=== PATIENT | male | born 1935 | race Caucasian/White ===

== ENCOUNTER 2017-09-24 16:10 | Inpatient (IN) | payer OTHER, MEDICAID, MEDICARE ==
[2017-09-24 20:00] LABS: ADD MAN DIFF? NO
[2017-09-24 20:02] LABS: WHITE BLOOD COUNT 10.3 10^3/ul (4.8-10.8)
[2017-09-24 20:02] LABS: BASOPHILS % 0.3 % (0.0-2.0); EOSINOPHILS # 0.1 10^3/ul (0.0-0.5); EOSINOPHILS % 1.1 % (0.0-7.0); HEMATOCRIT 27.8 % (42.0-52.0); HEMOGLOBIN 9.1 g/dl (14.0-18.0); LYMPHOCYTES # 1.1 10^3/ul (0.8-2.9); LYMPHOCYTES % 10.9 % (15.0-51.0); MEAN CORPUSCULAR HEMOGLOBIN 27.7 pg (29.0-33.0); MEAN CORPUSCULAR HGB CONC 32.7 g/dl (32.0-37.0); MEAN CORPUSCULAR VOLUME 84.8 fl (82.0-101.0); MEAN PLATELET VOLUME 9.8 fl (7.4-10.4); MONOCYTE # 0.7 10^3/ul (0.3-0.9); MONOCYTES % 6.3 % (0.0-11.0); NEUTROPHIL # 8.3 10^3/ul (1.6-7.5); PLATELET COUNT 374 10^3/UL (140-415); RED BLOOD COUNT 3.28 10^6/ul (4.70-6.10); RED CELL DISTRIBUTION WIDTH 12.9 % (11.5-14.5)
[2017-09-24 20:14] LABS: ALANINE AMINOTRANSFERASE 24 IU/L (13-69); ALBUMIN 3.6 g/dl (3.3-4.9); ALBUMIN/GLOBULIN RATIO 0.94; ALKALINE PHOSPHATASE 95 IU/L (42-121); ANION GAP 17 (8-16); ASPARTATE AMINO TRANSFERASE 22 IU/L (15-46); BILIRUBIN,INDIRECT 0.2 mg/dl (0-1.1); BILIRUBIN,TOTAL 0.2 mg/dl (0.2-1.3); BLOOD UREA NITROGEN 38 mg/dl (7-20); CALCIUM 10.6 mg/dl (8.4-10.2); CARBON DIOXIDE 27 mmol/L (21-31); CHLORIDE 97 mmol/L (97-110); CREATININE 1.65 mg/dl (0.61-1.24); GLUCOSE 167 mg/dl (70-220); POTASSIUM 4.8 mmol/L (3.5-5.1); SODIUM 136 mmol/L (135-144); TOTAL PROTEIN 7.4 g/dl (6.1-8.1)
[2017-09-24] MEDS: ASPIRIN 325 MG TAB PO (20:14)
[2017-09-24 20:15] LABS: INR 1.25; PROTIME 15.9 Sec (11.9-14.9); PT RATIO 1.2
[2017-09-24] MEDS: SOD CHLORIDE 0.9% 1,000 ML IV (20:15)
[2017-09-24 20:16] LABS: PARTIAL THROMBOPLASTIN TIME 31.8 Sec (25.0-35.0)
[2017-09-24 20:25] LABS: TROPONIN-I 0.014 ng/ml (0.00-0.12)
[2017-09-24] MEDS ORDERED: ONDANSETRON 4 MG INJ IV (23:30)
[2017-09-24] MEDS ORDERED: ACETAMINOPHEN 325 MG TAB PO (23:30)
[2017-09-25] MEDS: SOD CHLORIDE 0.9% 1,000 ML IV (00:41)
[2017-09-25] MEDS: PHYTONADIONE 10 MG/ML INJ SC (00:41)
[2017-09-25 01:21] LABS: COLLAGEN/EPI 113 Secs. (51-198)
[2017-09-25] MEDS ORDERED: ONDANSETRON 4 MG INJ IV (02:00)
[2017-09-25] MEDS ORDERED: NACL 0.9% 3 ML SYG IV (02:00)
[2017-09-25] MEDS ORDERED: LORAZEPAM 0.5 MG TAB PO (02:00)
[2017-09-25] MEDS ORDERED: ALBUTEROL/IPRATROPIUM (NEB) 3 ML AMP HHN (02:00)
[2017-09-25] MEDS ORDERED: morphine 2 MG INJ IV (02:00)
[2017-09-25] MEDS ORDERED: ACETAMINOPHEN 325 MG TAB PO (02:00)
[2017-09-25] MEDS ORDERED: hydrALAzine 20 MG INJ IV (02:00)
[2017-09-25] MEDS ORDERED: GLUCOSE GEL 15 GRAM TUBE PO ×2 (02:30)
[2017-09-25] MEDS ORDERED: GLUCAGON 1 MG INJ IM (02:30)
[2017-09-25] MEDS ORDERED: DEXTROSE 50% 50 ML SYRINGE IV ×2 (02:30)
[2017-09-25] MEDS ORDERED: GLUCOSE GEL 15 GRAM TUBE BUCCAL (02:30)
[2017-09-25 05:43] LABS: ADD MAN DIFF? NO
[2017-09-25 05:51] LABS: BASOPHILS % 0.3 % (0.0-2.0); EOSINOPHILS # 0.1 10^3/ul (0.0-0.5); EOSINOPHILS % 1.2 % (0.0-7.0); HEMATOCRIT 25.6 % (42.0-52.0); HEMOGLOBIN 8.5 g/dl (14.0-18.0); LYMPHOCYTES # 0.9 10^3/ul (0.8-2.9); LYMPHOCYTES % 7.8 % (15.0-51.0); MEAN CORPUSCULAR HEMOGLOBIN 27.6 pg (29.0-33.0); MEAN CORPUSCULAR HGB CONC 33.2 g/dl (32.0-37.0); MEAN CORPUSCULAR VOLUME 83.1 fl (82.0-101.0); MONOCYTE # 0.7 10^3/ul (0.3-0.9); MONOCYTES % 6.2 % (0.0-11.0); NEUTROPHIL # 9.9 10^3/ul (1.6-7.5); NEUTROPHILS % 84.2 % (39.0-77.0); PLATELET COUNT 340 10^3/UL (140-415); RED BLOOD COUNT 3.08 10^6/ul (4.70-6.10)
[2017-09-25 05:51] LABS: WHITE BLOOD COUNT 11.7 10^3/ul (4.8-10.8)
[2017-09-25 06:05] LABS: HEMOGLOBIN A1C 7.1 % (0-5.9)
[2017-09-25 06:18] LABS: ALANINE AMINOTRANSFERASE 29 IU/L (13-69); ALBUMIN 3.3 g/dl (3.3-4.9); ALBUMIN/GLOBULIN RATIO 1.03; ALKALINE PHOSPHATASE 83 IU/L (42-121); ANION GAP 13 (8-16); ASPARTATE AMINO TRANSFERASE 22 IU/L (15-46); BILIRUBIN,INDIRECT 0.1 mg/dl (0-1.1); BILIRUBIN,TOTAL 0.1 mg/dl (0.2-1.3); BLOOD UREA NITROGEN 32 mg/dl (7-20); CALCIUM 10.3 mg/dl (8.4-10.2); CARBON DIOXIDE 26 mmol/L (21-31); CHLORIDE 102 mmol/L (97-110); CHOL/HDL RATIO 4.3 RATIO; CHOLESTEROL 92 mg/dl (100-200); CREATININE 1.41 mg/dl (0.61-1.24); GLUCOSE 78 mg/dl (70-220); HDL CHOLESTEROL 21 mg/dl (31-75); LDL CHOLESTEROL,CALCULATED 55 mg/dl; MAGNESIUM 1.6 mg/dl (1.7-2.5); POTASSIUM 4.2 mmol/L (3.5-5.1); SODIUM 137 mmol/L (135-144); TOTAL PROTEIN 6.5 g/dl (6.1-8.1); TRIGLYCERIDES 78 mg/dl (0-149)
[2017-09-25 06:44] LABS: THYROID STIMULATING HORMONE 0.955 MIU/L (0.465-4.680)
[2017-09-25 06:56] LABS: IRON 19 ug/dl (35-150)
[2017-09-25 07:05] LABS: % IRON SATURATION 9 % SAT (22-52); TOTAL IRON BINDING CAPACITY 221 ug/dl (241-421)
[2017-09-25] MEDS: metFORMIN 500 MG TAB PO (08:54)
[2017-09-25] MEDS: ASPIRIN 81 MG TAB PO (08:54)
[2017-09-25] MEDS: AMLODIPINE 5 MG TAB PO (08:56)
[2017-09-25] MEDS: HEPARIN 5,000 UNIT/0.5 ML VIAL SC ×2 (09:00→20:28)
[2017-09-25 13:43] LABS: OCCULT BLOOD STOOL NEGATIVE (NEGATIVE)
[2017-09-25] MEDS: ATORVASTATIN 20 MG TAB PO (20:23)
[2017-09-26 07:24] LABS: ADD MAN DIFF? NO
[2017-09-26 07:38] LABS: BASOPHILS % 0.4 % (0.0-2.0); EOSINOPHILS # 0.2 10^3/ul (0.0-0.5); EOSINOPHILS % 2.2 % (0.0-7.0); HEMATOCRIT 23.6 % (42.0-52.0); HEMOGLOBIN 7.8 g/dl (14.0-18.0); LYMPHOCYTES % 12.6 % (15.0-51.0); MEAN CORPUSCULAR HEMOGLOBIN 27.8 pg (29.0-33.0); MEAN CORPUSCULAR HGB CONC 33.1 g/dl (32.0-37.0); MEAN PLATELET VOLUME 10.5 fl (7.4-10.4); MONOCYTE # 0.6 10^3/ul (0.3-0.9); MONOCYTES % 7.2 % (0.0-11.0); NEUTROPHIL # 6.2 10^3/ul (1.6-7.5); NEUTROPHILS % 77.2 % (39.0-77.0); PLATELET COUNT 339 10^3/UL (140-415); RED BLOOD COUNT 2.81 10^6/ul (4.70-6.10); RED CELL DISTRIBUTION WIDTH 12.9 % (11.5-14.5)
[2017-09-26 07:57] LABS: ANION GAP 12 (8-16); BLOOD UREA NITROGEN 35 mg/dl (7-20); CALCIUM 9.9 mg/dl (8.4-10.2); CARBON DIOXIDE 27 mmol/L (21-31); CHLORIDE 103 mmol/L (97-110); CREATININE 1.43 mg/dl (0.61-1.24); GLUCOSE 151 mg/dl (70-220); MAGNESIUM 1.6 mg/dl (1.7-2.5); PHOSPHORUS 3.2 mg/dl (2.5-4.9); POTASSIUM 4.1 mmol/L (3.5-5.1); SODIUM 138 mmol/L (135-144)
[2017-09-26] MEDS: HEPARIN 5,000 UNIT/0.5 ML VIAL SC (09:00)
[2017-09-26] MEDS: AMLODIPINE 5 MG TAB PO (09:00)
[2017-09-26] MEDS: IOHEXOL 300MG/ML 150 ML BTL (15:55)
[2017-09-26] MEDS: IODIXANOL LOCM 100 ML BTL (15:55)
[2017-09-26] MEDS: BARIUM SULF 2% 450 ML BTL (BERRY SMOOTHIE) PO (15:55)
[2017-09-26] MEDS: SOD CHLORIDE 0.9% 100 ML (15:55)
[2017-09-26] MEDS: INSULIN ASPART [NOVOLOG] 3 ML PEN SC ×2 (17:39→22:08)
[2017-09-26] MEDS: ATORVASTATIN 20 MG TAB PO (21:53)
[2017-09-27] MEDS: ACCU-CHEK XX (02:00)
[2017-09-27] MEDS: INSULIN ASPART [NOVOLOG] 3 ML PEN SC ×4 (07:56→22:14)
[2017-09-27] MEDS: AMLODIPINE 5 MG TAB PO (08:37)
[2017-09-27] MEDS: LIDOCAINE 1% (MDV) 10 ML INJ (13:21)
[2017-09-27] MEDS: SOD CHLORIDE 0.9% 250 ML (13:22)
[2017-09-27] MEDS: MIDAZOLAM 1 MG/ML 2 ML INJ (13:23)
[2017-09-27] MEDS: FENTAnyl 50 MCG/ML VIAL (13:23)
[2017-09-27] MEDS: ATORVASTATIN 20 MG TAB PO (22:12)
[2017-09-28] MEDS: ACCU-CHEK XX (02:00)
[2017-09-28] MEDS: INSULIN ASPART [NOVOLOG] 3 ML PEN SC ×3 (08:33→17:36)
[2017-09-28] MEDS: AMLODIPINE 5 MG TAB PO (08:38)
== END 2017-09-28 20:19 | DRG 180 ==
LOC: E/R 16:10 → MS4 23:02
PROC: 0BBC3ZX Excision of Right Upper Lung Lobe, Percutaneous Approach, Diagnostic (ICD-10-PCS; principal; 2017-09-27)
DX: C78.01 Secondary malignant neoplasm of right lung (principal); I62.03 Nontraumatic chronic subdural hemorrhage; N17.9 Acute kidney failure, unspecified; C78.02 Secondary malignant neoplasm of left lung; W19.XXXA Unspecified fall, initial encounter; Z91.81 History of falling; D63.0 Anemia in neoplastic disease; I12.9 Hypertensive chronic kidney disease with stage 1 through stage 4 chronic kidney disease, or unspecified chronic kidney disease; E11.22 Type 2 diabetes mellitus with diabetic chronic kidney disease; N18.9 Chronic kidney disease, unspecified; D18.1 Lymphangioma, any site; C67.9 Malignant neoplasm of bladder, unspecified; R26.0 Ataxic gait; Z79.4 Long term (current) use of insulin
CPT/HCPCS: 36415; 70450; 70551; 71045; 71250; 72148; 74177; 77012; 80048; 80053; 80061; 82270; 82728; 82962; 83036; 83540; 83735; 84100; 84443; 84484; 85025; 85576; 85610; 85730; 88104; 88307; 88312; 88313; 92610; 93005; 93306; 96372; 97116; 97163; 97530; 99285-25

== ENCOUNTER 2017-09-28 20:39 | Inpatient (IN) | payer OTHER, MEDICAID, MEDICARE ==
[2017-09-28] MEDS ORDERED: GLUCAGON 1 MG INJ IM (22:00)
[2017-09-28] MEDS ORDERED: ALBUTEROL/IPRATROPIUM (NEB) 3 ML AMP HHN (22:00)
[2017-09-28] MEDS ORDERED: GLUCOSE GEL 15 GRAM TUBE BUCCAL (22:00)
[2017-09-28] MEDS ORDERED: GLUCOSE GEL 15 GRAM TUBE PO ×2 (22:00)
[2017-09-28] MEDS ORDERED: DEXTROSE 50% 50 ML SYRINGE IV ×2 (22:00)
[2017-09-28] MEDS: DOCUSATE SODIUM 100 MG CAP PO (22:30)
[2017-09-28] MEDS ORDERED: LACTULOSE 30ML CUP PO (22:30)
[2017-09-28] MEDS: SENNA TAB PO (22:30)
[2017-09-28] MEDS ORDERED: MAGNESIUM HYDROXIDE 30ML CUP PO (22:30)
[2017-09-28] MEDS ORDERED: BISACODYL 10 MG SUPP PR (22:30)
[2017-09-28] MEDS: INSULIN ASPART [NOVOLOG] 3 ML PEN SC (23:02)
[2017-09-28 23:45] LABS: ADD UMIC YES; UR ASCORBIC ACID NEGATIVE (NEGATIVE); UR BILIRUBIN (Dip) NEGATIVE (NEGATIVE); UR BLOOD (Dip) 2+ mg/dL (NEGATIVE); UR CLARITY CLEAR (CLEAR); UR COLOR YELLOW (YELLOW); UR GLUCOSE (Dip) NEGATIVE (NEGATIVE); UR KETONES (Dip) NEGATIVE (NEGATIVE); UR LEUKOCYTE ESTERASE (Dip) NEGATIVE Leu/ul (NEGATIVE); UR MUCUS FEW /HPF (NONE SEEN); UR NITRITE (Dip) NEGATIVE (NEGATIVE); UR RBC 58 /HPF (0-5); UR SPECIFIC GRAVITY (Dip) 1.015 (1.003-1.030); UR TOTAL PROTEIN (Dip) 2+ mg/dl (NEGATIVE); UR UROBILINOGEN (Dip) NEGATIVE (NEGATIVE); UR WBC 12 /HPF (0-5)
[2017-09-29 06:38] LABS: ADD MAN DIFF? NO
[2017-09-29 06:49] LABS: BASOPHILS % 0.5 % (0.0-2.0); EOSINOPHILS # 0.3 10^3/ul (0.0-0.5); EOSINOPHILS % 3.4 % (0.0-7.0); HEMOGLOBIN 8.6 g/dl (14.0-18.0); LYMPHOCYTES # 0.9 10^3/ul (0.8-2.9); LYMPHOCYTES % 10.2 % (15.0-51.0); MEAN CORPUSCULAR HEMOGLOBIN 27.7 pg (29.0-33.0); MEAN CORPUSCULAR HGB CONC 33.1 g/dl (32.0-37.0); MEAN CORPUSCULAR VOLUME 83.9 fl (82.0-101.0); MEAN PLATELET VOLUME 10.4 fl (7.4-10.4); MONOCYTE # 0.4 10^3/ul (0.3-0.9); MONOCYTES % 5.3 % (0.0-11.0); NEUTROPHIL # 6.7 10^3/ul (1.6-7.5); NEUTROPHILS % 80.4 % (39.0-77.0); PLATELET COUNT 391 10^3/UL (140-415); RED CELL DISTRIBUTION WIDTH 13.1 % (11.5-14.5)
[2017-09-29 06:49] LABS: WHITE BLOOD COUNT 8.3 10^3/ul (4.8-10.8)
[2017-09-29 07:04] LABS: ALANINE AMINOTRANSFERASE 28 IU/L (13-69); ALBUMIN 3.4 g/dl (3.3-4.9); ALBUMIN/GLOBULIN RATIO 1.06; ALKALINE PHOSPHATASE 92 IU/L (42-121); ANION GAP 15 (8-16); ASPARTATE AMINO TRANSFERASE 21 IU/L (15-46); BILIRUBIN,INDIRECT 0.1 mg/dl (0-1.1); BILIRUBIN,TOTAL 0.1 mg/dl (0.2-1.3); BLOOD UREA NITROGEN 50 mg/dl (7-20); CALCIUM 10.6 mg/dl (8.4-10.2); CARBON DIOXIDE 24 mmol/L (21-31); CHLORIDE 104 mmol/L (97-110); CREATININE 1.75 mg/dl (0.61-1.24); GLUCOSE 178 mg/dl (70-220); POTASSIUM 4.2 mmol/L (3.5-5.1); SODIUM 139 mmol/L (135-144); TOTAL PROTEIN 6.6 g/dl (6.1-8.1)
[2017-09-29] MEDS: INSULIN ASPART [NOVOLOG] 3 ML PEN SC ×5 (08:00→21:08)
[2017-09-29] MEDS: metFORMIN 500 MG TAB PO (08:00)
[2017-09-29] MEDS: DOCUSATE SODIUM 100 MG CAP PO ×2 (08:33→21:04)
[2017-09-29] MEDS ORDERED: REPAGLINIDE 1 MG TAB PO ×2 (11:30)
[2017-09-29] MEDS ORDERED: REPAGLINIDE 2 MG TAB PO (11:30)
[2017-09-29] MEDS: INSULIN GLARGINE [LANtus] 3 ML PEN SC (12:27)
[2017-09-29] MEDS: LINAGLIPTIN 5 MG TABLET PO (12:33)
[2017-09-29] MEDS: REPAGLINIDE 2 MG TAB PO (17:44)
[2017-09-29] MEDS: SENNA TAB PO (21:04)
[2017-09-30] MEDS: INSULIN ASPART [NOVOLOG] 3 ML PEN SC ×4 (08:38→20:34)
[2017-09-30] MEDS: INSULIN GLARGINE [LANtus] 3 ML PEN SC (08:38)
[2017-09-30] MEDS: LINAGLIPTIN 5 MG TABLET PO (08:39)
[2017-09-30] MEDS: REPAGLINIDE 2 MG TAB PO ×3 (08:39→17:45)
[2017-09-30] MEDS: DOCUSATE SODIUM 100 MG CAP PO ×2 (08:39→20:28)
[2017-09-30] MEDS: SOD CHLORIDE 0.45% 1,000 ML IV (11:19)
[2017-09-30] MEDS: LORAZEPAM 0.5 MG TAB PO (20:28)
[2017-09-30] MEDS: ACETAMINOPHEN 325 MG TAB PO (20:29)
[2017-09-30] MEDS: SENNA TAB PO (21:00)
[2017-10-01] MEDS: SOD CHLORIDE 0.45% 1,000 ML IV ×2 (07:00→11:56)
[2017-10-01 07:17] LABS: ADD MAN DIFF? NO
[2017-10-01 07:21] LABS: WHITE BLOOD COUNT 12.3 10^3/ul (4.8-10.8)
[2017-10-01 07:21] LABS: BASOPHILS % 0.2 % (0.0-2.0); EOSINOPHILS # 0.2 10^3/ul (0.0-0.5); EOSINOPHILS % 1.7 % (0.0-7.0); HEMATOCRIT 28.2 % (42.0-52.0); HEMOGLOBIN 9.2 g/dl (14.0-18.0); LYMPHOCYTES # 1.1 10^3/ul (0.8-2.9); LYMPHOCYTES % 9.2 % (15.0-51.0); MEAN CORPUSCULAR HEMOGLOBIN 27.5 pg (29.0-33.0); MEAN CORPUSCULAR HGB CONC 32.6 g/dl (32.0-37.0); MEAN CORPUSCULAR VOLUME 84.4 fl (82.0-101.0); MEAN PLATELET VOLUME 10.4 fl (7.4-10.4); MONOCYTE # 0.7 10^3/ul (0.3-0.9); MONOCYTES % 5.9 % (0.0-11.0); NEUTROPHIL # 10.2 10^3/ul (1.6-7.5); NEUTROPHILS % 82.4 % (39.0-77.0); PLATELET COUNT 387 10^3/UL (140-415); RED BLOOD COUNT 3.34 10^6/ul (4.70-6.10); RED CELL DISTRIBUTION WIDTH 13.3 % (11.5-14.5)
[2017-10-01 08:06] LABS: ANION GAP 15 (8-16); BLOOD UREA NITROGEN 48 mg/dl (7-20); CALCIUM 10.4 mg/dl (8.4-10.2); CARBON DIOXIDE 23 mmol/L (21-31); CHLORIDE 105 mmol/L (97-110); CREATININE 1.72 mg/dl (0.61-1.24); GLUCOSE 125 mg/dl (70-220); POTASSIUM 4.3 mmol/L (3.5-5.1); SODIUM 139 mmol/L (135-144)
[2017-10-01] MEDS: LINAGLIPTIN 5 MG TABLET PO (08:26)
[2017-10-01] MEDS: DOCUSATE SODIUM 100 MG CAP PO ×2 (08:26→20:37)
[2017-10-01] MEDS: REPAGLINIDE 2 MG TAB PO ×3 (08:26→17:35)
[2017-10-01] MEDS: INSULIN ASPART [NOVOLOG] 3 ML PEN SC ×4 (08:32→20:33)
[2017-10-01] MEDS: INSULIN GLARGINE [LANtus] 3 ML PEN SC (08:33)
[2017-10-01] MEDS: BENZONATATE 100 MG CAP PO (14:15)
[2017-10-01] MEDS: TESTOSTERONE CYPIONATE 200 MG/ML INJ IM (14:15)
[2017-10-01] MEDS: CYANOCOBALAMIN 1000 MCG INJ IM (14:16)
[2017-10-01] MEDS: ACETAMINOPHEN 325 MG TAB PO (20:30)
[2017-10-01] MEDS: LORAZEPAM 0.5 MG TAB PO (20:30)
[2017-10-01] MEDS: SENNA TAB PO (20:37)
[2017-10-02 07:10] LABS: ADD MAN DIFF? NO
[2017-10-02 07:17] LABS: BASOPHILS % 0.2 % (0.0-2.0); EOSINOPHILS # 0.2 10^3/ul (0.0-0.5); HEMATOCRIT 23.6 % (42.0-52.0); HEMOGLOBIN 7.7 g/dl (14.0-18.0); LYMPHOCYTES % 9.5 % (15.0-51.0); MEAN CORPUSCULAR HEMOGLOBIN 27.6 pg (29.0-33.0); MEAN CORPUSCULAR HGB CONC 32.6 g/dl (32.0-37.0); MEAN CORPUSCULAR VOLUME 84.6 fl (82.0-101.0); MEAN PLATELET VOLUME 10.6 fl (7.4-10.4); MONOCYTE # 0.6 10^3/ul (0.3-0.9); MONOCYTES % 6.3 % (0.0-11.0); NEUTROPHIL # 8.3 10^3/ul (1.6-7.5); NEUTROPHILS % 81.7 % (39.0-77.0); PLATELET COUNT 339 10^3/UL (140-415); RED BLOOD COUNT 2.79 10^6/ul (4.70-6.10); RED CELL DISTRIBUTION WIDTH 13.2 % (11.5-14.5)
[2017-10-02 07:17] LABS: WHITE BLOOD COUNT 10.2 10^3/ul (4.8-10.8)
[2017-10-02] MEDS: SOD CHLORIDE 0.45% 1,000 ML IV ×3 (07:30→10:45)
[2017-10-02 07:46] LABS: ALANINE AMINOTRANSFERASE 26 IU/L (13-69); ALBUMIN 3.1 g/dl (3.3-4.9); ALKALINE PHOSPHATASE 81 IU/L (42-121); ANION GAP 12 (8-16); ASPARTATE AMINO TRANSFERASE 15 IU/L (15-46); BLOOD UREA NITROGEN 48 mg/dl (7-20); CALCIUM 10.3 mg/dl (8.4-10.2); CARBON DIOXIDE 25 mmol/L (21-31); CHLORIDE 104 mmol/L (97-110); CREATININE 1.62 mg/dl (0.61-1.24); GLUCOSE 126 mg/dl (70-220); POTASSIUM 4.3 mmol/L (3.5-5.1); SODIUM 137 mmol/L (135-144); TOTAL PROTEIN 6.2 g/dl (6.1-8.1)
[2017-10-02 08:16] LABS: IONIZED CALCIUM 1.4 mmol/L (1.1-1.4)
[2017-10-02] MEDS: INSULIN ASPART [NOVOLOG] 3 ML PEN SC ×4 (08:25→21:13)
[2017-10-02] MEDS: INSULIN GLARGINE [LANtus] 3 ML PEN SC (08:27)
[2017-10-02] MEDS: REPAGLINIDE 2 MG TAB PO ×3 (08:27→17:40)
[2017-10-02] MEDS: DOCUSATE SODIUM 100 MG CAP PO ×2 (08:28→21:00)
[2017-10-02] MEDS: LINAGLIPTIN 5 MG TABLET PO (08:28)
[2017-10-02] MEDS: INFLUENZA VIRUS VACCINE 0.5 ML (DISPENSING) IM* (09:00)
[2017-10-02] MEDS: BENZONATATE 100 MG CAP PO (12:20)
[2017-10-02] MEDS: SOD CHLORIDE 0.9% 250 ML IV* ×2 (12:24→16:23)
[2017-10-02 13:33] LABS: IRON 20 ug/dl (35-150)
[2017-10-02 13:42] LABS: % IRON SATURATION 8 % SAT (22-52); TOTAL IRON BINDING CAPACITY 248 ug/dl (241-421)
[2017-10-02 15:53] LABS: IMMEDIATE SPIN CROSSMATCH 1 1
[2017-10-02] MEDS: DIPHENHYDRAMINE 50 MG CAP PO (16:09)
[2017-10-02] MEDS: SENNA TAB PO (21:00)
[2017-10-02] MEDS: LORAZEPAM 0.5 MG TAB PO (21:14)
[2017-10-02] MEDS: ACETAMINOPHEN 325 MG TAB PO (21:14)
[2017-10-03] MEDS: SOD CHLORIDE 0.45% 1,000 ML IV ×2 (03:30→14:19)
[2017-10-03] MEDS: INSULIN GLARGINE [LANtus] 3 ML PEN SC (08:22)
[2017-10-03] MEDS: DOCUSATE SODIUM 100 MG CAP PO ×2 (08:23→21:00)
[2017-10-03] MEDS: LINAGLIPTIN 5 MG TABLET PO (08:23)
[2017-10-03] MEDS: INSULIN ASPART [NOVOLOG] 3 ML PEN SC ×4 (08:23→21:00)
[2017-10-03] MEDS: REPAGLINIDE 2 MG TAB PO ×3 (08:23→17:42)
[2017-10-03 08:34] LABS: HEMOGLOBIN 9.2 g/dl (14.0-18.0)
[2017-10-03] MEDS: SENNA TAB PO (21:00)
[2017-10-04 06:33] LABS: ADD MAN DIFF? NO
[2017-10-04 06:41] LABS: WHITE BLOOD COUNT 15.3 10^3/ul (4.8-10.8)
[2017-10-04 06:41] LABS: BASOPHILS % 0.2 % (0.0-2.0); EOSINOPHILS # 0.1 10^3/ul (0.0-0.5); EOSINOPHILS % 0.6 % (0.0-7.0); HEMATOCRIT 27.9 % (42.0-52.0); HEMOGLOBIN 9.2 g/dl (14.0-18.0); LYMPHOCYTES # 1.1 10^3/ul (0.8-2.9); MEAN CORPUSCULAR HEMOGLOBIN 27.6 pg (29.0-33.0); MEAN CORPUSCULAR VOLUME 83.8 fl (82.0-101.0); MEAN PLATELET VOLUME 10.6 fl (7.4-10.4); MONOCYTE # 0.9 10^3/ul (0.3-0.9); MONOCYTES % 5.9 % (0.0-11.0); NEUTROPHIL # 13.1 10^3/ul (1.6-7.5); NEUTROPHILS % 85.8 % (39.0-77.0); PLATELET COUNT 369 10^3/UL (140-415); RED BLOOD COUNT 3.33 10^6/ul (4.70-6.10); RED CELL DISTRIBUTION WIDTH 13.5 % (11.5-14.5)
[2017-10-04 06:59] LABS: INR 1.25; PROTIME 15.9 Sec (11.9-14.9); PT RATIO 1.2
[2017-10-04 07:00] LABS: PARTIAL THROMBOPLASTIN TIME 35.4 Sec (25.0-35.0)
[2017-10-04 07:01] LABS: ANION GAP 15 (8-16); BLOOD UREA NITROGEN 39 mg/dl (7-20); CALCIUM 10.6 mg/dl (8.4-10.2); CARBON DIOXIDE 23 mmol/L (21-31); CHLORIDE 103 mmol/L (97-110); CREATININE 1.78 mg/dl (0.61-1.24); GLUCOSE 116 mg/dl (70-220); POTASSIUM 4.4 mmol/L (3.5-5.1); SODIUM 137 mmol/L (135-144)
[2017-10-04 07:31] LABS: PTH INTACT 2 pg/mL (14-64)
[2017-10-04] MEDS: REPAGLINIDE 2 MG TAB PO ×3 (08:30→17:05)
[2017-10-04] MEDS: INSULIN ASPART [NOVOLOG] 3 ML PEN SC ×4 (08:34→20:54)
[2017-10-04] MEDS: DOCUSATE SODIUM 100 MG CAP PO ×3 (08:35→20:54)
[2017-10-04] MEDS: LINAGLIPTIN 5 MG TABLET PO (08:35)
[2017-10-04] MEDS: INSULIN GLARGINE [LANtus] 3 ML PEN SC ×3 (08:35→12:03)
[2017-10-04] MEDS: SOD CHLORIDE 0.45% 1,000 ML IV ×2 (13:40→13:43)
[2017-10-04] MEDS: ARTIFICIAL TEARS 15 ML OPH BOTH EYES (15:08)
[2017-10-04] MEDS: SENNA TAB PO (20:54)
[2017-10-05] MEDS: REPAGLINIDE 2 MG TAB PO ×2 (07:05→12:41)
[2017-10-05] MEDS: INSULIN ASPART [NOVOLOG] 3 ML PEN SC ×5 (07:35→21:00)
[2017-10-05] MEDS ORDERED: INSULIN GLARGINE [LANtus] 3 ML PEN SC (08:00)
[2017-10-05] MEDS: INSULIN GLARGINE [LANtus] 3 ML PEN SC (08:06)
[2017-10-05] MEDS: LINAGLIPTIN 5 MG TABLET PO (08:07)
[2017-10-05] MEDS: DOCUSATE SODIUM 100 MG CAP PO ×2 (08:07→21:00)
[2017-10-05] MEDS: SOD CHLORIDE 0.45% 1,000 ML IV (09:39)
[2017-10-05] MEDS: SENNA TAB PO (21:00)
[2017-10-06] MEDS: SOD CHLORIDE 0.45% 1,000 ML IV (06:15)
[2017-10-06] MEDS: INSULIN ASPART [NOVOLOG] 3 ML PEN SC ×7 (07:35→20:38)
[2017-10-06] MEDS: INSULIN GLARGINE [LANtus] 3 ML PEN SC (08:36)
[2017-10-06] MEDS: DOCUSATE SODIUM 100 MG CAP PO ×2 (08:40→20:41)
[2017-10-06] MEDS: BENZONATATE 100 MG CAP PO (08:40)
[2017-10-06] MEDS: LINAGLIPTIN 5 MG TABLET PO (08:40)
[2017-10-06] MEDS: SENNA TAB PO (20:41)
[2017-10-07] MEDS: SOD CHLORIDE 0.45% 1,000 ML IV (06:34)
[2017-10-07] MEDS: INSULIN ASPART [NOVOLOG] 3 ML PEN SC ×7 (07:35→21:15)
[2017-10-07] MEDS: INSULIN GLARGINE [LANtus] 3 ML PEN SC (07:54)
[2017-10-07] MEDS: DOCUSATE SODIUM 100 MG CAP PO ×2 (09:32→21:15)
[2017-10-07] MEDS: LINAGLIPTIN 5 MG TABLET PO (09:32)
[2017-10-07] MEDS: SENNA TAB PO (21:00)
[2017-10-08] MEDS: SOD CHLORIDE 0.45% 1,000 ML IV (06:34)
[2017-10-08 07:00] LABS: ADD MAN DIFF? NO
[2017-10-08 07:02] LABS: WHITE BLOOD COUNT 10.4 10^3/ul (4.8-10.8)
[2017-10-08 07:02] LABS: BASOPHILS % 0.3 % (0.0-2.0); EOSINOPHILS # 0.1 10^3/ul (0.0-0.5); EOSINOPHILS % 1.2 % (0.0-7.0); HEMATOCRIT 24.9 % (42.0-52.0); HEMOGLOBIN 8.1 g/dl (14.0-18.0); LYMPHOCYTES % 9.6 % (15.0-51.0); MEAN CORPUSCULAR HEMOGLOBIN 27.6 pg (29.0-33.0); MEAN CORPUSCULAR HGB CONC 32.5 g/dl (32.0-37.0); MEAN PLATELET VOLUME 10.6 fl (7.4-10.4); MONOCYTE # 0.8 10^3/ul (0.3-0.9); MONOCYTES % 7.6 % (0.0-11.0); NEUTROPHIL # 8.5 10^3/ul (1.6-7.5); NEUTROPHILS % 80.9 % (39.0-77.0); PLATELET COUNT 326 10^3/UL (140-415); RED BLOOD COUNT 2.93 10^6/ul (4.70-6.10); RED CELL DISTRIBUTION WIDTH 13.5 % (11.5-14.5)
[2017-10-08 07:31] LABS: ANION GAP 13 (8-16); BLOOD UREA NITROGEN 47 mg/dl (7-20); CALCIUM 10.2 mg/dl (8.4-10.2); CARBON DIOXIDE 24 mmol/L (21-31); CHLORIDE 106 mmol/L (97-110); CREATININE 1.71 mg/dl (0.61-1.24); GLUCOSE 86 mg/dl (70-220); POTASSIUM 4.2 mmol/L (3.5-5.1); SODIUM 139 mmol/L (135-144)
[2017-10-08] MEDS: INSULIN ASPART [NOVOLOG] 3 ML PEN SC ×7 (07:35→20:45)
[2017-10-08] MEDS: INSULIN GLARGINE [LANtus] 3 ML PEN SC (08:50)
[2017-10-08] MEDS: LINAGLIPTIN 5 MG TABLET PO (08:58)
[2017-10-08] MEDS: DOCUSATE SODIUM 100 MG CAP PO ×2 (08:58→20:47)
[2017-10-08] MEDS: BENZONATATE 100 MG CAP PO (08:59)
[2017-10-08] MEDS: SENNA TAB PO (20:47)
[2017-10-09] MEDS: INSULIN ASPART [NOVOLOG] 3 ML PEN SC ×4 (07:47→12:10)
[2017-10-09] MEDS: LINAGLIPTIN 5 MG TABLET PO (07:49)
[2017-10-09] MEDS: INSULIN GLARGINE [LANtus] 3 ML PEN SC (07:49)
[2017-10-09] MEDS: DOCUSATE SODIUM 100 MG CAP PO (07:50)
== END 2017-10-09 14:15 | disposition home health service (06) | DRG 945 ==
LOC: VRC 10-03 17:35
PROC: F07Z5ZZ Bed Mobility Treatment (ICD-10-PCS; principal; 2017-09-28)
PROC: F08Z2ZZ Grooming/Personal Hygiene Treatment (ICD-10-PCS; 2017-09-28)
PROC: F06Z6ZZ Communicative/Cognitive Integration Skills Treatment (ICD-10-PCS; 2017-09-28)
PROC: 30233N1 Transfusion of Nonautologous Red Blood Cells into Peripheral Vein, Percutaneous Approach (ICD-10-PCS; 2017-10-02)
DX: S06.5X0D Traumatic subdural hemorrhage without loss of consciousness, subsequent encounter (principal); N17.9 Acute kidney failure, unspecified; C78.00 Secondary malignant neoplasm of unspecified lung; S09.90XD Unspecified injury of head, subsequent encounter; X58.XXXD Exposure to other specified factors, subsequent encounter; R91.8 Other nonspecific abnormal finding of lung field; D49.4 Neoplasm of unspecified behavior of bladder; E11.9 Type 2 diabetes mellitus without complications; I12.9 Hypertensive chronic kidney disease with stage 1 through stage 4 chronic kidney disease, or unspecified chronic kidney disease; E11.22 Type 2 diabetes mellitus with diabetic chronic kidney disease; N18.9 Chronic kidney disease, unspecified; D64.9 Anemia, unspecified; Z79.4 Long term (current) use of insulin; E11.21 Type 2 diabetes mellitus with diabetic nephropathy
CPT/HCPCS: 36430; 80048; 80053; 81001; 82330; 82728; 82962; 83540; 83970; 85014; 85018; 85025; 85610; 85730; 86850; 86900; 86901; 86920; 87081; 87086; 88104; 90686; 92507; 92610; 97110; 97112; 97116; 97163; 97167; 97530; 97535; 97542

== ENCOUNTER 2017-11-15 09:59 | Inpatient (IN) | payer OTHER, MEDICAID ==
[2017-11-15 10:51] LABS: HEMATOCRIT 25.7 % (42.0-52.0); HEMOGLOBIN 7.9 g/dl (14.0-18.0); MEAN CORPUSCULAR HEMOGLOBIN 25.7 pg (29.0-33.0); MEAN CORPUSCULAR HGB CONC 30.7 g/dl (32.0-37.0); MEAN CORPUSCULAR VOLUME 83.7 fl (82.0-101.0); MEAN PLATELET VOLUME 10.2 fl (7.4-10.4); PLATELET COUNT 342 10^3/UL (140-415); POSITIVE DIFF @See below; RED BLOOD COUNT 3.07 10^6/ul (4.70-6.10); RED CELL DISTRIBUTION WIDTH 14.3 % (11.5-14.5)
[2017-11-15 10:51] LABS: WHITE BLOOD COUNT 13.4 10^3/ul (4.8-10.8)
[2017-11-15 10:53] LABS: ADD MAN DIFF? YES
[2017-11-15] MEDS: ONDANSETRON 4 MG INJ IV (11:00)
[2017-11-15] MEDS: LACTATED RINGER'S 1,000 ML IV (11:00)
[2017-11-15] MEDS: morphine 4 MG/ML VIAL IV ×2 (11:01→12:15)
[2017-11-15 11:16] LABS: ALANINE AMINOTRANSFERASE 27 IU/L (13-69); ALBUMIN 2.9 g/dl (3.3-4.9); ALBUMIN/GLOBULIN RATIO 0.85; ALKALINE PHOSPHATASE 151 IU/L (42-121); ANION GAP 13 (8-16); ANISOCYTOSIS 1+ (0-0); ASPARTATE AMINO TRANSFERASE 20 IU/L (15-46); BAND NEUTROPHILS #M 1.3 10^3/ul (0.0-0.6); BAND NEUTROPHILS % (M) 10 % (0-4); BLOOD UREA NITROGEN 62 mg/dl (7-20); CALCIUM 10.3 mg/dl (8.4-10.2); CARBON DIOXIDE 26 mmol/L (21-31); CHLORIDE 104 mmol/L (97-110); CREATININE 2.32 mg/dl (0.61-1.24); GLUCOSE 255 mg/dl (70-220); LIPASE 111 U/L (23-300); LYMPHOCYTES #M 0.9 10^3/ul (0.8-2.9); LYMPHOCYTES % (M) 7 % (15-51); MICROCYTOSIS 1+ (0-0); MONOCYTE #M 0.2 10^3/ul (0.3-0.9); MONOCYTES % (M) 2 % (0-11); PLATELET ESTIMATE NORMAL; POLYCHROMASIA 3+ (0-0); POTASSIUM 4.5 mmol/L (3.5-5.1); SEGMENTED NEUTROPHILS (M) % 81 % (39-77); SODIUM 138 mmol/L (135-144); TOTAL PROTEIN 6.3 g/dl (6.1-8.1)
[2017-11-15 11:20] LABS: INR 1.41; PROTIME 17.5 Sec (11.9-14.9); PT RATIO 1.4
[2017-11-15 11:21] LABS: PARTIAL THROMBOPLASTIN TIME 37.1 Sec (25.0-35.0)
[2017-11-15 11:28] LABS: TROPONIN-I < 0.012 ng/ml (0.000-0.120)
[2017-11-15] MEDS: SOD CHLORIDE 0.9% 1,000 ML IV (12:17)
[2017-11-15] MEDS: metroNIDAZOLE 500 MG/NS (PMX) 100 ML IVPB (12:56)
[2017-11-15] MEDS: LEVOFLOXACIN 500MG/D5W (PMX) 100 ML IVPB (13:19)
[2017-11-15] MEDS ORDERED: NACL 0.9% 3 ML SYG IV (16:00)
[2017-11-15] MEDS ORDERED: MAGNESIUM HYDROXIDE 30ML CUP PO (16:00)
[2017-11-15] MEDS ORDERED: ONDANSETRON 4 MG INJ IV (16:00)
[2017-11-15] MEDS: PIPER-TAZO 3.375 GM IV (PMX) 100 ML IVPB ×2 (16:24→22:10)
[2017-11-15] MEDS: DEXTROSE 5%-0.45% NACL 1,000 ML IV ×2 (16:24→22:10)
[2017-11-15] MEDS ORDERED: GLUCAGON 1 MG INJ IM (16:30)
[2017-11-15] MEDS ORDERED: GLUCOSE GEL 15 GRAM TUBE PO ×2 (16:30)
[2017-11-15] MEDS ORDERED: GLUCOSE GEL 15 GRAM TUBE BUCCAL (16:30)
[2017-11-15] MEDS ORDERED: DEXTROSE 50% 50 ML SYRINGE IV ×2 (16:30)
[2017-11-15] MEDS: HYDROCODONE/APAP (5/325) TAB PO (17:09)
[2017-11-15] MEDS: INSULIN ASPART [NOVOLOG] 3 ML PEN SC ×2 (18:00→21:00)
[2017-11-16] MEDS: ACCU-CHEK XX (02:00)
[2017-11-16] MEDS: PANTOPRAZOLE 40 MG INJ IV (05:42)
[2017-11-16] MEDS: PIPER-TAZO 3.375 GM IV (PMX) 100 ML IVPB ×3 (05:42→20:54)
[2017-11-16] MEDS: INSULIN ASPART [NOVOLOG] 3 ML PEN SC ×4 (07:55→20:53)
[2017-11-16 11:33] LABS: WHITE BLOOD COUNT 16.5 10^3/ul (4.8-10.8)
[2017-11-16 11:33] LABS: ADD MAN DIFF? NO; BASOPHILS % 0.2 % (0.0-2.0); EOSINOPHILS # 0.1 10^3/ul (0.0-0.5); EOSINOPHILS % 0.6 % (0.0-7.0); HEMATOCRIT 24.9 % (42.0-52.0); HEMOGLOBIN 7.5 g/dl (14.0-18.0); LYMPHOCYTES # 0.9 10^3/ul (0.8-2.9); LYMPHOCYTES % 5.3 % (15.0-51.0); MEAN CORPUSCULAR HEMOGLOBIN 25.7 pg (29.0-33.0); MEAN CORPUSCULAR HGB CONC 30.1 g/dl (32.0-37.0); MEAN CORPUSCULAR VOLUME 85.3 fl (82.0-101.0); MEAN PLATELET VOLUME 11.1 fl (7.4-10.4); MONOCYTE # 0.7 10^3/ul (0.3-0.9); NEUTROPHIL # 14.8 10^3/ul (1.6-7.5); NEUTROPHILS % 89.3 % (39.0-77.0); PLATELET COUNT 347 10^3/UL (140-415); RED BLOOD COUNT 2.92 10^6/ul (4.70-6.10); RED CELL DISTRIBUTION WIDTH 14.3 % (11.5-14.5)
[2017-11-16 11:45] LABS: ANION GAP 13 (8-16); BLOOD UREA NITROGEN 42 mg/dl (7-20); CALCIUM 10.1 mg/dl (8.4-10.2); CARBON DIOXIDE 22 mmol/L (21-31); CHLORIDE 109 mmol/L (97-110); CREATININE 1.81 mg/dl (0.61-1.24); GLUCOSE 64 mg/dl (70-220); POTASSIUM 4.3 mmol/L (3.5-5.1); SODIUM 140 mmol/L (135-144)
[2017-11-16] MEDS: DEXTROSE 5%-0.45% NACL 1,000 ML IV (12:30)
[2017-11-16] MEDS: LORAZEPAM 2 MG INJ IV (13:48)
[2017-11-17] MEDS: ACCU-CHEK XX (02:00)
[2017-11-17] MEDS: PANTOPRAZOLE 40 MG INJ IV (05:21)
[2017-11-17] MEDS: PIPER-TAZO 3.375 GM IV (PMX) 100 ML IVPB ×3 (05:21→21:15)
[2017-11-17] MEDS: INSULIN ASPART [NOVOLOG] 3 ML PEN SC ×4 (08:40→21:00)
[2017-11-17] MEDS: DEXTROSE 5%-0.45% NACL 1,000 ML IV (09:16)
[2017-11-17 09:38] LABS: ADD MAN DIFF? NO
[2017-11-17 09:46] LABS: WHITE BLOOD COUNT 15.3 10^3/ul (4.8-10.8)
[2017-11-17 09:46] LABS: ABNORMAL IP MESSAGE 1; BASOPHILS % 0.1 % (0.0-2.0); EOSINOPHILS # 0.2 10^3/ul (0.0-0.5); EOSINOPHILS % 1.1 % (0.0-7.0); LYMPHOCYTES # 0.9 10^3/ul (0.8-2.9); LYMPHOCYTES % 6.1 % (15.0-51.0); MEAN CORPUSCULAR HEMOGLOBIN 26.1 pg (29.0-33.0); MEAN CORPUSCULAR HGB CONC 31.4 g/dl (32.0-37.0); MEAN PLATELET VOLUME 10.9 fl (7.4-10.4); MONOCYTE # 0.6 10^3/ul (0.3-0.9); MONOCYTES % 3.9 % (0.0-11.0); NEUTROPHIL # 13.5 10^3/ul (1.6-7.5); PLATELET COUNT 314 10^3/UL (140-415); POSITIVE DIFF @See below; RED BLOOD COUNT 2.53 10^6/ul (4.70-6.10); RED CELL DISTRIBUTION WIDTH 14.3 % (11.5-14.5)
[2017-11-17 09:59] LABS: HEMOGLOBIN 6.6 g/dl (14.0-18.0)
[2017-11-17 10:07] LABS: PHOSPHORUS 3.5 mg/dl (2.5-4.9)
[2017-11-17 10:07] LABS: MAGNESIUM 1.8 mg/dl (1.7-2.5)
[2017-11-17 10:13] LABS: ALANINE AMINOTRANSFERASE 25 IU/L (13-69); ALBUMIN 2.3 g/dl (3.3-4.9); ALBUMIN/GLOBULIN RATIO 0.76; ALKALINE PHOSPHATASE 131 IU/L (42-121); ANION GAP 11 (8-16); ASPARTATE AMINO TRANSFERASE 20 IU/L (15-46); BILIRUBIN,INDIRECT 0.2 mg/dl (0-1.1); BILIRUBIN,TOTAL 0.2 mg/dl (0.2-1.3); BLOOD UREA NITROGEN 37 mg/dl (7-20); CALCIUM 9.8 mg/dl (8.4-10.2); CARBON DIOXIDE 23 mmol/L (21-31); CHLORIDE 109 mmol/L (97-110); CREATININE 2.27 mg/dl (0.61-1.24); GLUCOSE 173 mg/dl (70-220); POTASSIUM 3.9 mmol/L (3.5-5.1); SODIUM 139 mmol/L (135-144); TOTAL PROTEIN 5.3 g/dl (6.1-8.1)
[2017-11-17] MEDS: HYDROCODONE/APAP (5/325) TAB PO (11:00)
[2017-11-17] MEDS: SOD CHLORIDE 0.45% 1,000 ML IV (12:55)
[2017-11-17] MEDS: DIPHENHYDRAMINE 25 MG CAP PO (17:27)
[2017-11-17] MEDS: ACETAMINOPHEN 325 MG TAB PO (17:27)
[2017-11-18] MEDS: HYDROCODONE/APAP (5/325) TAB PO ×3 (01:27→23:48)
[2017-11-18] MEDS: ACCU-CHEK XX (02:00)
[2017-11-18] MEDS: PANTOPRAZOLE 40 MG INJ IV (05:45)
[2017-11-18] MEDS: PIPER-TAZO 3.375 GM IV (PMX) 100 ML IVPB ×3 (05:45→21:13)
[2017-11-18] MEDS: INSULIN ASPART [NOVOLOG] 3 ML PEN SC ×4 (07:55→20:03)
[2017-11-18] MEDS: SOD CHLORIDE 0.45% 1,000 ML IV ×2 (08:49→17:12)
[2017-11-18 21:08] LABS: IMMEDIATE SPIN CROSSMATCH 1 2
[2017-11-19] MEDS: ACCU-CHEK XX (02:00)
[2017-11-19] MEDS: PANTOPRAZOLE (EC) 40 MG TAB PO (05:03)
[2017-11-19] MEDS: PIPER-TAZO 3.375 GM IV (PMX) 100 ML IVPB ×3 (05:03→22:25)
[2017-11-19 06:34] LABS: ADD MAN DIFF? NO
[2017-11-19 06:40] LABS: ABNORMAL IP MESSAGE 1; BASOPHILS % 0.2 % (0.0-2.0); EOSINOPHILS # 0.1 10^3/ul (0.0-0.5); EOSINOPHILS % 0.6 % (0.0-7.0); HEMATOCRIT 29.6 % (42.0-52.0); HEMOGLOBIN 9.6 g/dl (14.0-18.0); LYMPHOCYTES % 3.8 % (15.0-51.0); MEAN CORPUSCULAR HEMOGLOBIN 26.5 pg (29.0-33.0); MEAN CORPUSCULAR HGB CONC 32.4 g/dl (32.0-37.0); MEAN CORPUSCULAR VOLUME 81.8 fl (82.0-101.0); MEAN PLATELET VOLUME 10.3 fl (7.4-10.4); MONOCYTE # 0.9 10^3/ul (0.3-0.9); MONOCYTES % 3.5 % (0.0-11.0); NEUTROPHIL # 22.7 10^3/ul (1.6-7.5); NEUTROPHILS % 90.8 % (39.0-77.0); PLATELET COUNT 352 10^3/UL (140-415); POSITIVE DIFF @See below; RED BLOOD COUNT 3.62 10^6/ul (4.70-6.10); RED CELL DISTRIBUTION WIDTH 14.7 % (11.5-14.5)
[2017-11-19] MEDS: INSULIN ASPART [NOVOLOG] 3 ML PEN SC ×5 (09:46→20:34)
[2017-11-19] MEDS: ACETAMINOPHEN 325 MG TAB PO (17:54)
[2017-11-20] MEDS: SOD CHLORIDE 0.45% 1,000 ML IV ×2 (00:01→20:30)
[2017-11-20] MEDS: ACCU-CHEK XX (01:10)
[2017-11-20] MEDS: PANTOPRAZOLE (EC) 40 MG TAB PO (06:03)
[2017-11-20] MEDS: PIPER-TAZO 3.375 GM IV (PMX) 100 ML IVPB ×3 (06:03→21:39)
[2017-11-20] MEDS: INSULIN ASPART [NOVOLOG] 3 ML PEN SC ×4 (09:01→21:41)
[2017-11-20 14:17] LABS: ABNORMAL IP MESSAGE 1; HEMATOCRIT 29.1 % (42.0-52.0); HEMOGLOBIN 9.4 g/dl (14.0-18.0); MEAN CORPUSCULAR HEMOGLOBIN 26.4 pg (29.0-33.0); MEAN CORPUSCULAR HGB CONC 32.3 g/dl (32.0-37.0); MEAN CORPUSCULAR VOLUME 81.7 fl (82.0-101.0); PLATELET COUNT 365 10^3/UL (140-415); POSITIVE DIFF @See below; RED BLOOD COUNT 3.56 10^6/ul (4.70-6.10); RED CELL DISTRIBUTION WIDTH 15.3 % (11.5-14.5)
[2017-11-20 14:17] LABS: WHITE BLOOD COUNT 30.5 10^3/ul (4.8-10.8)
[2017-11-20 14:20] LABS: ADD MAN DIFF? YES
[2017-11-20 14:47] LABS: ANISOCYTOSIS 1+ (0-0); BAND NEUTROPHILS #M 3.6 10^3/ul (0.0-0.6); BAND NEUTROPHILS % (M) 12 % (0-4); LYMPHOCYTES #M 0.3 10^3/ul (0.8-2.9); LYMPHOCYTES % (M) 1 % (15-51); MICROCYTOSIS 1+ (0-0); PLATELET ESTIMATE NORMAL; POIKILOCYTOSIS 2+ (0-0); POLYCHROMASIA 3+ (0-0); SEG NEUT #M 27.6 10^3/ul (1.6-7.5); SEGMENTED NEUTROPHILS (M) % 87 % (39-77)
[2017-11-21] MEDS: ACCU-CHEK XX (01:03)
[2017-11-21] MEDS: PANTOPRAZOLE (EC) 40 MG TAB PO (05:36)
[2017-11-21] MEDS: PIPER-TAZO 3.375 GM IV (PMX) 100 ML IVPB ×2 (05:37→13:49)
[2017-11-21 06:53] LABS: WHITE BLOOD COUNT 27.5 10^3/ul (4.8-10.8)
[2017-11-21 06:53] LABS: ABNORMAL IP MESSAGE 1; HEMATOCRIT 29.3 % (42.0-52.0); HEMOGLOBIN 9.4 g/dl (14.0-18.0); MEAN CORPUSCULAR HEMOGLOBIN 26.1 pg (29.0-33.0); MEAN CORPUSCULAR HGB CONC 32.1 g/dl (32.0-37.0); MEAN CORPUSCULAR VOLUME 81.4 fl (82.0-101.0); MEAN PLATELET VOLUME 10.6 fl (7.4-10.4); PLATELET COUNT 368 10^3/UL (140-415); RED CELL DISTRIBUTION WIDTH 15.3 % (11.5-14.5)
[2017-11-21 06:59] LABS: ADD MAN DIFF? YES
[2017-11-21] MEDS: INSULIN ASPART [NOVOLOG] 3 ML PEN SC ×6 (08:14→21:00)
[2017-11-21 11:46] LABS: BAND NEUTROPHILS #M 4.9 10^3/ul (0.0-0.6); BAND NEUTROPHILS % (M) 18 % (0-4); BURR CELLS FEW; EOSINOPHILS # 0.3 10^3/ul (0.0-0.5); EOSINOPHILS % (M) 1 % (0.0-7.0); LYMPHOCYTES # 0.8 10^3/ul (0.8-2.9); LYMPHOCYTES #M 0.8 10^3/ul (0.8-2.9); LYMPHOCYTES % (M) 3 % (15-51); METAMYELOCYTES #M 0.5 10^3/ul (0.0-0.0); METAMYELOCYTES %M 2 % (0-0); MONOCYTE # 1.4 10^3/ul (0.3-0.9); MONOCYTE #M 1.3 10^3/ul (0.3-0.9); MONOCYTES % (M) 5 % (0-11); MYELOCYTES #M 0.2 10^3/ul (0.0-0.0); MYELOCYTES % (M) 1 % (0-0); SEG NEUT #M 20.6 10^3/ul (1.7-7.5); SEGMENTED NEUTROPHILS (M) % 70 % (39-77)
[2017-11-21] MEDS: SOD CHLORIDE 0.45% 1,000 ML IV (16:36)
[2017-11-21] MEDS: INSULIN GLARGINE [LANtus] 3 ML PEN SC (21:11)
[2017-11-22] MEDS: ACCU-CHEK XX (02:00)
[2017-11-22] MEDS: PANTOPRAZOLE (EC) 40 MG TAB PO (06:03)
[2017-11-22] MEDS: INSULIN ASPART [NOVOLOG] 3 ML PEN SC ×7 (08:27→21:00)
[2017-11-22] MEDS: SOD CHLORIDE 0.45% 1,000 ML IV (11:59)
[2017-11-22] MEDS: INSULIN GLARGINE [LANtus] 3 ML PEN SC (20:11)
[2017-11-23] MEDS: ACCU-CHEK XX (02:00)
[2017-11-23] MEDS: PANTOPRAZOLE (EC) 40 MG TAB PO (05:17)
[2017-11-23] MEDS: HYDROCODONE/APAP (5/325) TAB PO (05:18)
[2017-11-23] MEDS: INSULIN ASPART [NOVOLOG] 3 ML PEN SC ×6 (08:00→20:56)
[2017-11-23] MEDS: SOD CHLORIDE 0.45% 1,000 ML IV (08:41)
[2017-11-23] MEDS: INSULIN GLARGINE [LANtus] 3 ML PEN SC (20:58)
[2017-11-24] MEDS: ACCU-CHEK XX (02:00)
[2017-11-24] MEDS: HYDROCODONE/APAP (5/325) TAB PO ×2 (02:15→11:45)
[2017-11-24] MEDS: SOD CHLORIDE 0.45% 1,000 ML IV ×2 (02:28→05:00)
[2017-11-24] MEDS: PANTOPRAZOLE (EC) 40 MG TAB PO (05:25)
[2017-11-24] MEDS: INSULIN ASPART [NOVOLOG] 3 ML PEN SC ×4 (08:00→20:42)
[2017-11-24] MEDS: CEFTRIAXONE 1 GM/50 ML (PMX) 50 ML IVPB (10:40)
[2017-11-24] MEDS: DEXTROSE 5%-0.45% NACL 1,000 ML IV (14:57)
[2017-11-24] MEDS: INSULIN GLARGINE [LANtus] 3 ML PEN SC (20:39)
[2017-11-24] MEDS: ALBUTEROL/IPRATROPIUM (NEB) 3 ML AMP HHN (20:44)
[2017-11-25] MEDS: INSULIN ASPART [NOVOLOG] 3 ML PEN SC ×4 (01:11→13:19)
[2017-11-25] MEDS: ALBUTEROL/IPRATROPIUM (NEB) 3 ML AMP HHN ×3 (01:38→14:34)
[2017-11-25] MEDS: ACCU-CHEK XX (02:00)
[2017-11-25] MEDS: morphine 2 MG INJ IV ×2 (02:41→09:38)
[2017-11-25] MEDS: PANTOPRAZOLE (EC) 40 MG TAB PO (05:58)
[2017-11-25] MEDS: DEXTROSE 5%-0.45% NACL 1,000 ML IV (09:05)
[2017-11-25] MEDS: CEFTRIAXONE 1 GM/50 ML (PMX) 50 ML IVPB (09:38)
== END 2017-11-25 16:13 | disposition hospice, home (50) | DRG 391 ==
LOC: PP2 11-19 07:53 → E/R 09:59 → TEL 13:09
PROC: 30233N1 Transfusion of Nonautologous Red Blood Cells into Peripheral Vein, Percutaneous Approach (ICD-10-PCS; principal; 2017-11-17)
DX: K52.9 Noninfective gastroenteritis and colitis, unspecified (principal); S06.5X9A Traumatic subdural hemorrhage with loss of consciousness of unspecified duration, initial encounter; S12.01XA Stable burst fracture of first cervical vertebra, initial encounter for closed fracture; N17.9 Acute kidney failure, unspecified; C78.00 Secondary malignant neoplasm of unspecified lung; S12.000A Unspecified displaced fracture of first cervical vertebra, initial encounter for closed fracture; E11.9 Type 2 diabetes mellitus without complications; I10 Essential (primary) hypertension; E86.0 Dehydration; D64.9 Anemia, unspecified; D18.1 Lymphangioma, any site; C67.9 Malignant neoplasm of bladder, unspecified; Z87.891 Personal history of nicotine dependence; E83.52 Hypercalcemia; W06.XXXA Fall from bed, initial encounter
CPT/HCPCS: 36415; 36430; 70450; 71045; 72125; 72141; 74176; 76775; 80048; 80053; 82962; 83036; 83690; 83735; 84100; 84484; 85025; 85610; 85730; 86674; 86850; 86900; 86901; 86920; 87040; 87045; 92610; 93005; 94640; 94664; 96365; 96366; 96375; 96376; 99291-25